=== PATIENT | female | born 1940 | race Caucasian/White ===

== ENCOUNTER 2019-03-21 18:08 | Emergency (ER) | payer MEDICARE ==
[~2019-03-21] VITALS: Ht 152.4 cm; Wt 69.0 kg
[~2019-03-21 18:08] MED LIST: BUPR-173 PO; CALC-680 PO; CETI10CA PO; CHOL2000 PO; DULO60CA56 PO; DULO60CA7 PO; ENAL1TAB5 PO; ENAL20TA PO; INSTAFLEX PO; MAGNESIUM PO; MELO7.5T5 PO; MULT-717 PO; ONDA4TAB13 SL; OXYB5TAB10 PO; OXYC5CAP2 PO
--- NOTE | 2019-03-21 18:32 | NUR ---
NIRMAL. REPORT RECEIVED FROM EMS. PT IS MORE CONFUSED AND RISK FOR FALL PER SENIOR CARE STAFF. RECENT UTI AND ABX NOT COMPLETED(3DAYS LEFT?). PT DENIES ANY PHYSICAL SYMPTOMS. PT'S AOX4. RESPS EVEN AND UNLABORED. ALL MONITORS IN PLACE. CALL LIGHT WITHIN REACH. NSR RATE 90'S ON DIAMOND SAWER AT THIS TIME.
--- NOTE | 2019-03-21 18:56 | NUR ---
REPORT GIVEN TO MAGDI CAMP.
--- NOTE | 2019-03-21 19:13 | NUR ---
PT AOX4. DENIES COMPLAINTS. DOES NOT WANT ANY TESTING DONE. CALLED THE TAL TO INQUIRE ABOUT DECISION TO SEND PT TO THE HOSPITAL. SPOKE TO NGUYỄN WHO TRANSFERRED TO ME TO [facility] CAROLYN WHOM INFORMED ME THEY WERE ONLY FOLLOWING RIGOBERTO SARGENT DOCUMENTATION MANAGER ORDER'S. i ASKED ABOUT WHAT THEY BELIEVE IS WRONG AND THEY STATE THE PT IS REFUSING TO TAKE HER MEDICATION. PT STATES THE STAFF THERE HASNT BEEN GIVING HER HER MEDICATIONS ON TIME SO SHE MISSED A COUPLE DOSES. ABX BOTTLE WAS CHECKED AND THREE PILLS REMAIN ON A 7 DAY COURSE BID FILLED ONT HE 14. STAFF WAS INFORMED OF THIS. THIS RN REQUESTED TO SPEAK TO LICHA ALBARRAN DOCUMENTATION MANAGER WHICH THE STAFF REFUSED TO CALL AND REFUSED TO ALLOW THIS RN TO CALL. THEY ALSO STATE THERE IS NO CURRENT MD OR DOCUMENTATION MANAGER AT THEIR FACILITY CURRENTLY. CAROLYN THEN CALLED NURSE TRE(?) ON ANOTHER PHONE AND VIA SPEAKER ON THE OTHER PHONE WE CONVERSED. SHE ALSO DECLINED TO GIVE A LEGITIMATE REASON FOR THE TRANSPORT OTHER THAN MEDICATION NON COMPLIANCE. I ASKED HER IF THIS RN COULD SPEAK TO THEIR PROVIDER AND SHE ALSO DECLINED. THIS RN SPOKE TO THE PT ABOUT THIS AND SHE STATES SHE IS WILLING TO GO BACK AND BE COMPLIANT WITH HER ABX.
--- NOTE | 2019-03-21 19:15 | NUR ---
ADDENDUM: WHILST SPEAKING TO STAFF ON THE PHONE THIS RN REQUESTED THE SENDING PHYSICIAN COME TO THE HOSPITAL AND PLACE THE ORDERS HERSELF IF SHE REQUESTS THEY BE DONE WITHOUT HAVING ANY DOCUMENTATION SPECIFYING WHAT SHE WANTS. THIS WAS DECLINED BY STAFF. THIS RN ALSO ASKED WHY THIS TESTING COULDNT BE DONE AN OUTPATIENT AT AN OUTPATIENT LAB. STAFF REPLIED STATING THEY ARE JUST FOLLOWING THE DOCTORS ORDERS.
--- NOTE | 2019-03-21 19:50 | NUR ---
THIS RN AND ER MD CONVERSED ABOUT PTS CARE. WE ARE IN AGREEMENT PT DOES NOT SHOW ANY SIGNS OF SEPSIS. PT REMAINS AOX4. VITALS SIGNS REMAIN STABLE. THIS RN, ER MD, AND PT ARE IN AGREEMENT THAT ANY TESTING AT THIS TIME IS UNNECESSARY AND UNWARRANTED.
--- NOTE | 2019-03-21 20:06 | NUR ---
WITH PTS PERMISSION THIS RN SPOKE WITH PTS DAUGHTER WHO IS ALSO PTS POA. PT SIGNED RELEASE OF INFORMATION. POC DISCUSSED AND ALL ARE IN AGREEMENT. PT TO BE DISCHARGED.
--- NOTE | 2019-03-21 20:50 | NUR ---
PT GIVEN WATER PER REQUEST. AWAITING DC PAPERWORK.
[2019-03-21 21:08] VITALS: BP 104/74
--- NOTE | 2019-03-21 21:09 | NUR ---
JOSE CAMP CONFIRMED WRITTEN RELEASE SUFFICIENT
== END 2019-03-21 21:10 | disposition home or self-care (01) ==
LOC: ED 20:45
DX: Z00.00 Encounter for general adult medical examination without abnormal findings (principal); Z91.14 Patient's other noncompliance with medication regimen; I10 Essential (primary) hypertension
CPT/HCPCS: 99283